=== PATIENT | female | born 1985 | race Caucasian/White ===

== ENCOUNTER → 2016-11-24 | Outpatient (CLI) | payer MEDICAID ==
[2016-11-24 16:30] LABS: HEMOGLOBIN 10.8 g/dL (12.2-16.2); LYMPH % 18.6 % (10-50.0)
[2016-11-24 16:31] LABS: LYMPH # 1.8 K/mm3 (0.7-4.5)
[2016-11-24 19:58] LABS: BUN 15 mg/dL (7-18)
[2016-11-24 20:18] LABS: GFR (ESTIMATED) 97 ML/MIN (59-)
== END ==
LOC: LAB 15:27
PROVIDERS: Nurse Practitioner Obstetrics & Gynecology
DX: N92.0 Excessive and frequent menstruation with regular cycle (principal); Z01.818 Encounter for other preprocedural examination

== ENCOUNTER 2016-11-26 06:20 | Day surgery (SDC) | payer MEDICAID ==
[~2016-11-26 06:20] MED LIST: ACYCLOVIR 400M400 MG PO; ADDERALL5 MG PO; ADVAIR 10028 PUFF/IN INH; AEROCHAMBER1 DEV IH; ALBUTEROL1.25 MG/1 INH; ALBUTEROL2 PUFFS/17 IN; ALBUTEROL2.5 MG/NEB IN; ALBUTEROL200 PUFFS/ IH; ASPIRIN CHILDRE81 M1 PO; AZITHROMYCIN250 MG PO; BACTRIM DS 8001 TAB PO; BENZONATATE100 MG PO; CIPRO 500MG TA500 MG PO; CLARITIN REDITA10 MG PO; CLOMID 50MG TAB50 MG PO; DARVOCET-N 1001 EACH PO; DOXYCYCLINE MO100 MG PO; FERROUS SULFAT324 M1 PO; FIORICET 325 MG1 TAB PO; FLAGYL 500MG.500 MG PO; FLONASE 50 MCG16 GM; FLUOXETINE20 M2 PO; HCTZ/LISINOPRIL1 TA3 PO; HYDROCODONE1 TABLET PO; ICY HOT1 CRE TP; KEFLEX 500MG.500 MG PO; LABETALOL 100M100 MG PO; LABETALOL200 MG PO; LIDOCAINE 2% VI1 UDC PO; LISINOPRIL/HCTZ1 TA3 PO; LORATADINE 10MG10 M1 PO; LORTAB 5/500 501 TAB PO; MACROBID 100MG100 MG PO; MEDROL 4MG. DOSE4 MG PO; METFORMIN 500M500 MG PO; MOTRIN600 MG PO; NIFEDIPINE XL 330 MG PO; PEPCID 20MG TAB20 MG PO; PHENERGAN VC S473 ML PO; PHENERGAN12.5 M3 PO; POTASSIUM CHLO10 ME3 PO; PREDNISONE 10MG10 MG PO; PREDNISONE20 MG PO; PREDNISONE50 MG PO; PRENATAL PLUS1 TA1 PO; PRENATAL VITAMI1 TA3 PO; PROZAC 20MG CAP20 MG PO; SINGULAIR 10 MG10 MG PO; SINGULAIR10 MG PO; SYNTHROID0.025 MG PO; ULTRAM 50 MG TA50 MG PO; VENLAFAXINE HCL75 M1 PO; VOLTAREN75 MG PO; ZANTAC 150150 MG PO; ZITHROMAX 250M250 MG PO; ZITHROMAX TRI-500 MG PO; ZITHROMAX Z-PA250 M1 PO; ZOFRAN ODT8 MG PO; ZOFRAN4 MG PO; ZYRTEC10 M2 PO; prednisone PO
--- NOTE | 2016-11-26 08:23 | Operative Note ---
Procedure/Operative Record Procedure Date of procedure: 11/26/16 Pre-Op Dx: Menorrhagia, anemia Post-Op Dx: Menorrhagia, anemia Procedure performed: Hysteroscopy, D and C Surgeon: Dr. Javid Mcgee [employer] Member(s): None Anesthesia: Vipul Dean EBL (ml): 50 Clinical note: She is a 31-year-old morbidly obese 3 para 2 who has had heavy bleeding over the past couple of years. We have tried control pills but she did not take them and continued to have extremely heavy periods. I attempted to do a biopsy in my office. Her cervix was so high in the vagina that I was not able to see her cervix. She had significant redundant vaginal mucosa. As result of this we elected to do a hysteroscopy, D and C. Operative findings: She had an anteverted bulky uterus. The endometrium actually appeared normal. It was somewhat lush but otherwise normal. Operative note: She was taken the operating room where general anesthesia was found be adequate. She was prepped and draped in normal sterile fashion in the lithotomy position. A weighted speculum was placed in the vagina and the anterior lip of the cervix was grasped with a tenaculum. Milian dilators used to dilate the cervix to approximate 5 mm. I then inserted a hysteroscope with saline as a distending media into the uterine cavity. The findings were as presented dictated. I then performed a gentle curettage with a medium curet. She tolerated the procedure well and was taken to the recovery room in excellent condition. All sponge and instrument counts were correct. Estimated blood loss was less than 50 mL. Conplications: None Specimens: Endometrial curettings at 0824
--- NOTE | 2016-11-26 08:29 | Anesthesia Record ---
Anesthesia Record Part I Total IV fluids: 200 EBL (ml): 25 Urine Output: 30 B/P: 131/73 % SaO2: 93 Pulse: 92 Resps: 18 Temp: 98.2 Patient is: Drowsy, Nasal O2, Stable Stable to PACU at: 0827 at 0837
--- NOTE | 2016-11-26 08:30 | Anesthesia Record ---
Anesthesia Record Part II Discharge time: 855 Destination: Same day surgery PACU nurse assessment review? Yes Patient is: Awake, Stable Anesthesia complications? No at 0830
[2016-11-26 13:15] VITALS: BP 141/71
== END 2016-11-26 09:40 | disposition home or self-care (01) ==
LOC: SDC 06:20
PROVIDERS: Nurse Practitioner Obstetrics & Gynecology
PROC: 0UDB8ZX Extraction of Endometrium, Via Natural or Artificial Opening Endoscopic, Diagnostic (ICD-10-PCS; principal; 2016-11-26 07:30)
DX: N92.0 Excessive and frequent menstruation with regular cycle (principal); D50.0 Iron deficiency anemia secondary to blood loss (chronic)